=== PATIENT | male | born 1970 | race Caucasian/White ===

== ENCOUNTER 2021-05-14 06:40 | Emergency (ER) | payer MEDICARE, SELFPAY ==
[2021-05-14] VITALS (8 sets, daily range): BP systolic 90–113; BP diastolic 62–73; PULSE 88–107; RESP 13–25; TEMP 37.2; O2SAT 95–100
--- NOTE | ~2021-05-14 | XR_ITS ---
EXAMINATION: XR chest 2V DATE: 05/14/2021 07:22 INDICATION: Chest pain TECHNIQUE: AP and lateral views of the chest are obtained. COMPARISON: 05/23/2015 FINDINGS: The lungs are free of acute opacities. There is no pleural effusion or pneumothorax. Cardio megaly is noted. There is mild thoracic spondylosis. There is been interval insertion of a triple no d cardiac pacemaker of the left chest wall which ends with leads in expected locations. IMPRESSION: 1. Cardiomegaly. Reviewed, dictated and finalized at location A. IMPRESSION: 1. Cardiomegaly.
--- NOTE | 2021-05-14 07:02 | PC.NURSE ---
Pt here c ems from home, where he reports his defibrilator shocked him. reports this has happened x 2 prior. Prysm defibrilator placed 6 years ago for chf which pt attributes to childhood cancer. placed on cardiac/vascular sonographer. a/o x 4. resps even/nonlabored.
--- NOTE | 2021-05-14 07:03 | PC.NURSE ---
this rn called [facility] and stated they would fax report over within in the next 20 min.
--- NOTE | 2021-05-14 07:04 | ED.ARRPALP ---
HPI - Arrhythmia/Palpitations General Chief Complaint: Arrhythmia/Palpitations Stated Complaint: defib went off Time Seen by Provider: 05/14/21 07:04 Source: patient Mode of arrival: ambulatory Limitations: no limitations History of Present Illness HPI narrative: Patient is a 50-year-old male complaining of his defibrillator going off. Patient states that prior to his defibrillator going off he was feeling nauseated and felt like he was going to pass out and that is when the defibrillator went off. Patient denies any syncopal episodes. Patient denies any headache, dizziness, speech or visual disturbance, focal weakness or numbness, chest pain, shortness of breath, abdominal pain, vomiting, diarrhea, fever or chills. Related Data Home Medications Medication Instructions Recorded Confirmed atorvastatin 80 mg tablet 80 mg PO DAILY 07/14/20 04/15/21 clopidogrel 75 mg tablet 75 mg PO DAILY 07/14/20 04/15/21 evolocumab 140 mg/mL subcutaneous 140 mg SUB-Q ONCE 07/14/20 04/15/21 pen injector metoprolol succinate 50 mg 50 mg PO DAILY 07/14/20 04/15/21 tablet,extended release 24 hr omeprazole 20 mg tablet,delayed 20 mg PO DAILY 07/14/20 04/15/21 release sacubitril 24 mg-valsartan 26 mg 1 tablet PO BID 07/14/20 04/15/21 tablet spironolactone 25 mg tablet 25 mg PO DAILY 07/14/20 04/15/21 furosemide 80 mg tablet 120 mg PO QAM tablet 04/11/21 04/15/21 potassium chloride 20 mEq 10 meq PO DAILY tablet 04/11/21 04/15/21 tablet,extended release Allergies Allergy/AdvReac Type Severity Reaction Status Date / Time mexiletine AdvReac Intermediate Other Verified 05/14/21 06:54 Review of Systems Review of Systems: All systems reviewed & are unremarkable except as noted in HPI and below Constitutional: Constitutional: Denies body ache(s), Denies chills, Denies excessive sweating, Denies fatigue, Denies fever(s), Denies headache(s), Denies lethargy, Denies malaise, Denies weakness and Denies weight loss Eyes: Eyes: Denies blurry vision, Denies change in vision and Denies loss of vision ENT: Denies dizziness, Denies ear discharge, Denies headache(s), Denies lip swelling, Denies epistaxis, Denies nasal congestion, Denies neck pain, Denies throat swelling and Denies tongue swelling Cardiovascular: Cardiovascular: Denies chest pain, Denies chest pain at rest, Denies chest pain with activity, Denies diaphoresis, Denies rapid heart rate, Denies edema, Denies irregular heart rhythm, Denies lightheadedness, Denies palpitations, Denies dyspnea and Denies dyspnea on exertion Respiratory: Respiratory: Denies chest congestion, Denies cough, Denies hemoptysis, Denies dyspnea and Denies dyspnea on exertion Gastrointestinal: Gastrointestinal: Denies abdominal pain, Denies melena, Denies hematochezia, Denies diarrhea, Denies vomiting and Denies hematemesis Musculoskeletal: Musculoskeletal: Denies abnormal gait, Denies deformity, Denies joint swelling, Denies limited range of motion, Denies neck pain and Denies numbness Neurologic: Denies Abnormal speech present, Denies abnormal gait, Denies confusion, Denies dizziness, Denies headache(s), Denies focal weakness, Denies loss of vision, Denies numbness, Denies Other visual disturbances, Denies Sensory deficit (Neuro) and Denies weakness Psychiatric: Psychiatric: Denies confusion, Denies depression, Denies auditory hallucinations, Denies homicidal ideation and Denies suicidal ideation Endocrine: Endocrine: Denies cold intolerance, Denies excessive sweating, Denies fatigue, Denies heat intolerance and Denies palpitations Hematologic/Lymphatic: Hematologic/Lymphatic: Denies easy bleeding and Denies easy bruising Allergic/Immunologic: Allergic/Immunologic: Denies lip swelling, Denies throat swelling and Denies tongue swelling [facility] Past Medical History Medical History (Updated 05/14/21 @ 09:01 by Dm Bernardo MD) Cardiac defibrillator in place Chronic back pain Chronic, continuous use of opioids
[2021-05-14 07:05] LABS: Basophils Absolute Auto 0.1 K/mm3 (0.0-0.1); Basophils Percent Auto 0.7 % (0.2-1.2); Eosinophils Absolute Auto 0.2 K/mm3 (0-0.3); Eosinophils Percent Auto 2.8 % (0-4.4); Hematocrit 42.6 % (42.0-52.0); Hemoglobin 14.1 g/dL (14.0-18.0); Immature Granulocyte Absolute 0.01 K/mm3 (0.00-0.031); Immature Granulocyte Percent A 0.1 % (0-0.5); Lymphocytes Absolute Auto 1.89 K/mm3 (0.9-3.2); Lymphocytes Percent Auto 26.6 % (18.3-44.2); Mean Corpuscular HGB Conc 33.1 g/dl (32-36); Mean Corpuscular Hemoglobin 29.7 pg (26-34); Mean Corpuscular Volume 89.9 fl (80-100); Mean Platelet Volume 10.1 fl (7.4-10.4); Monocytes Absolute Auto 0.3 K/mm3 (0.1-0.6); Monocytes Percent Auto 4.8 % (2.6-8.5); Neutrophils Absolute Auto 4.6 K/mm3 (1.3-6.7); Platelet Count Result 148 k/mm3 (150-375); Red Blood Count 4.74 M/mm3 (4.6-6.20); Red Cell Distribution Width 13.3 % (11.5-14.5); White Blood Count 7.1 K/mm3 (4.5-10.0)
[2021-05-14 07:14] LABS: Anion Gap 11 mmol/L (8-16); Blood Urea Nitrogen 15 mg/dL (9-20); Calcium 8.8 mg/dL (8.4-10.2); Carbon Dioxide 27 mmol/L (22-30); Chloride 97 mmol/L (98-107); Estimated CRCL calculation 53 ml/min; Estimated Glomerular Filt Rate 46; Glucose 116 mg/dL (75-110); Potassium 3.3 mmol/L (3.4-5.0); Sodium 135 mmol/L (137-145)
[2021-05-14 07:15] LABS: INR 0.9; Prothrombin Time 11.9 Seconds (11.1-14.7)
[2021-05-14 07:16] LABS: Partial Thromboplastin Time 24.6 SECONDS (22.3-36.8)
[2021-05-14 07:23] LABS: NT Pro B Type Natriuretic Pept 1440 pg/mL (5-100)
[2021-05-14 07:26] LABS: Troponin I 0.016 ng/mL (0.000-0.034)
--- NOTE | 2021-05-14 07:38 | PC.NURSE ---
called lab talked to Clau patel on a D dimer at [id number]
[2021-05-14 08:19] LABS: D Dimer 0.27 ug/mL (<0.48)
--- NOTE | 2021-05-14 08:42 | ECG_ITS ---
Measurements Intervals [place] Rate: 105 P: 50 IA: 139 QRS: -78 QRSD: 174 T: 80 QT: 405 QTc: 535 Interpretive Statements ATRIAL SENSE- ELECTRONIC VENTRICULAR PACEMAKER UNDERLYING SINUS TACHYCARDIA NO FURTHER INTERPRETATION IS POSSIBLE ABNORMAL ECG Electronically Signed On 05-14-2021 11:13:11 CDT by Usama Simental D.O.
[2021-05-14] MEDS: POTASSIUM CHLORIDE 20 MEQ PACKET (FOR LIQUID) PO (08:44)
--- NOTE | 2021-05-14 10:02 | PC.NURSE ---
called lab talked to Melissa added on MG at 1002
[2021-05-14 10:06] LABS: Troponin I 0.033 ng/mL (0.000-0.034)
--- NOTE | 2021-05-14 10:24 | ED.ARRPALP ---
HPI - Arrhythmia/Palpitations General Chief Complaint: Arrhythmia/Palpitations Stated Complaint: defib went off Time Seen by Provider: 05/14/21 07:04 Source: patient Mode of arrival: ambulatory Limitations: no limitations History of Present Illness HPI narrative: Patient is a 50-year-old male complaining of his defibrillator going off. Patient states that prior to his defibrillator going off he was feeling nauseated and felt like he was going to pass out and that is when the defibrillator went off. Patient denies any syncopal episodes. Patient denies any headache, dizziness, speech or visual disturbance, focal weakness or numbness, chest pain, shortness of breath, abdominal pain, vomiting, diarrhea, fever or chills. Related Data Home Medications Medication Instructions Recorded Confirmed atorvastatin 80 mg tablet 80 mg PO DAILY 07/14/20 04/15/21 clopidogrel 75 mg tablet 75 mg PO DAILY 07/14/20 04/15/21 evolocumab 140 mg/mL subcutaneous 140 mg SUB-Q ONCE 07/14/20 04/15/21 pen injector metoprolol succinate 50 mg 50 mg PO DAILY 07/14/20 04/15/21 tablet,extended release 24 hr omeprazole 20 mg tablet,delayed 20 mg PO DAILY 07/14/20 04/15/21 release sacubitril 24 mg-valsartan 26 mg 1 tablet PO BID 07/14/20 04/15/21 tablet spironolactone 25 mg tablet 25 mg PO DAILY 07/14/20 04/15/21 furosemide 80 mg tablet 120 mg PO QAM tablet 04/11/21 04/15/21 potassium chloride 20 mEq 10 meq PO DAILY tablet 04/11/21 04/15/21 tablet,extended release Allergies Allergy/AdvReac Type Severity Reaction Status Date / Time mexiletine AdvReac Intermediate Other Verified 05/14/21 06:54 Review of Systems Review of Systems: All systems reviewed & are unremarkable except as noted in HPI and below Constitutional: Constitutional: Denies body ache(s), Denies chills, Denies excessive sweating, Denies fatigue, Denies fever(s), Denies headache(s), Denies lethargy, Denies malaise, Denies weakness and Denies weight loss Eyes: Eyes: Denies blurry vision, Denies change in vision and Denies loss of vision ENT: Denies dizziness, Denies ear discharge, Denies headache(s), Denies lip swelling, Denies epistaxis, Denies nasal congestion, Denies neck pain, Denies throat swelling and Denies tongue swelling Cardiovascular: Cardiovascular: Denies chest pain, Denies chest pain at rest, Denies chest pain with activity, Denies diaphoresis, Denies rapid heart rate, Denies edema, Denies irregular heart rhythm, Denies lightheadedness, Denies palpitations, Denies dyspnea and Denies dyspnea on exertion Respiratory: Respiratory: Denies chest congestion, Denies cough, Denies hemoptysis, Denies dyspnea and Denies dyspnea on exertion Gastrointestinal: Gastrointestinal: Denies abdominal pain, Denies melena, Denies hematochezia, Denies diarrhea, Denies nausea, Denies vomiting and Denies hematemesis Musculoskeletal: Musculoskeletal: Denies abnormal gait, Denies deformity, Denies joint swelling, Denies limited range of motion, Denies neck pain and Denies numbness Neurologic: Denies Abnormal speech present, Denies abnormal gait, Denies confusion, Denies dizziness, Denies headache(s), Denies focal weakness, Denies loss of vision, Denies numbness, Denies Other visual disturbances, Denies Sensory deficit (Neuro) and Denies weakness Psychiatric: Psychiatric: Denies confusion, Denies depression, Denies auditory hallucinations, Denies homicidal ideation and Denies suicidal ideation Endocrine: Endocrine: Denies cold intolerance, Denies excessive sweating, Denies fatigue, Denies heat intolerance and Denies palpitations Hematologic/Lymphatic: Hematologic/Lymphatic: Denies easy bleeding and Denies easy bruising Allergic/Immunologic: Allergic/Immunologic: Denies lip swelling, Denies throat swelling and Denies tongue swelling [facility] Past Medical History Medical History (Updated 05/14/21 @ 10:33 by Dm Bernardo MD) Cardiac defibrillator in place Chronic back pain Chronic, continuous u
--- NOTE | 2021-05-14 11:05 | PC.NURSE ---
Bárbara EDWARDS called to give bed # [id number]
--- NOTE | 2021-05-14 11:15 | PC.NURSE ---
Report given to Bárbara EDWARDS at this time, Mike YOUSSEF . Patient going to room 4068 by EMS
--- NOTE | 2021-05-14 11:32 | PC.NURSE ---
made contact with [employer] to transfer pt to [facility]. company accepted with no eta. made contact with [facility] to transfer pt. company accepted eta in route. company is aware pt is going to [facility] rm [phone]
--- NOTE | 2021-05-14 12:11 | PC.NURSE ---
dwayne has arrived and crew is aware that pt is going [facility]
== END 2021-05-14 12:15 | disposition short-term general hospital (02) ==
PROVIDERS: Emergency Medicine; Emergency Provider Emergency Medicine; PCP Family Medicine
DX: I47.2 Ventricular tachycardia (principal); T82.198A Other mechanical complication of other cardiac electronic device, initial encounter; I50.9 Heart failure, unspecified; Z87.891 Personal history of nicotine dependence; Z95.0 Presence of cardiac pacemaker; Z85.71 Personal history of Hodgkin lymphoma
CPT/HCPCS: 36415; 71046; 80048; 83735; 83880; 84484; 85025; 85380; 85610; 85730; 93005; 99285; A9270

== ENCOUNTER 2022-05-10 13:08 | Outpatient (CLI) | payer MEDICARE, SELFPAY ==
--- NOTE | ~2022-05-10 | US_ITS ---
EXAMINATION:US venous doppler LE RT INDICATION:Localized edema TECHNIQUE: Multiple grayscale, color flow and Doppler images of the right lower extremity deep venous systems were obtained and reviewed. COMPARISON:No prior studies for comparison. FINDINGS: The common femoral, superficial femoral and popliteal veins demonstrate normal respiratory variation, augmentation and compressibility. Color flow is also seen within the posterior tibial, pe roneal, greater saphenous and profunda veins. IMPRESSION: 1: No lower extremity deep venous thrombosis. Reviewed, dictated and finalized at location A.
== END 2022-05-10 13:09 | disposition home or self-care (01) ==
PROVIDERS: PCP Family Medicine; Visit Provider Physician Assistant Medical
DX: R60.0 Localized edema (principal)
CPT/HCPCS: 93971

== ENCOUNTER 2025-04-11 11:34 | Outpatient (CLI) | payer MEDICARE, SELFPAY ==
--- NOTE | ~2025-04-11 | XR_ITS ---
EXAMINATION: XR abdomen obstructive series DATE: 04/11/2025 11:53 INDICATION: Abdominal pain TECHNIQUE: Supine and upright views of the abdomen. FINDINGS: Supine and upright views of the abdomen The visualized lung parenchyma is normal.. There is a nonobstructive bowel gas pattern. Gas and stool are seen throughout the colon to the level of the rectum. There is no free air. IMPRESSION: 1. No acute abdominal abnormality. Reviewed, dictated and finalized at location A.
== END 2025-04-11 11:35 | disposition home or self-care (01) ==
PROVIDERS: PCP Family Medicine; Visit Provider Family Medicine
DX: R10.9 Unspecified abdominal pain (principal)
CPT/HCPCS: 74019

== ENCOUNTER 2025-04-19 08:52 | Outpatient (CLI) | payer MEDICARE, SELFPAY ==
--- NOTE | ~2025-04-19 | CT_ITS ---
Non-contrast CT scan of the Abdomen and Pelvis Clinical indication: Abdominal pain Technique: 2.5 mm axial scans were obtained through the abdomen and pelvis without intravenous or or al contrast. Dose reduction technique was used on this scan by utilizing automated exposure control a nd iterative reconstruction technique. The dose-length product (DLP) was 576.63 mGy-cm. Findings: Images through the lung bases reveal no abnormalities. There is no evidence of renal or ureteral calculi. The kidneys and the ureters are nondilated. 2.4 cm suspected renal cyst present on the right kidney. The liver, spleen, pancreas, gallbladder, and adrenals appear normal. There are atherosclerotic calci fications of the aorta. . There is no evidence of bowel obstruction. Images through the pelvis were performed. There is no evidence of ascites or lymphadenopathy. Urinary bladder unremarkable. No pelvic mass seen. No ascites. Impression: 2.4 cm suspected right renal cyst. Confirmation with ultrasound is advised. No other significant findings. Reviewed, dictated and finalized at [facility]. Impression: 2.4 cm suspected right renal cyst. Confirmation with ultrasound is advised. No other significant findings.
== END 2025-04-19 08:53 | disposition home or self-care (01) ==
PROVIDERS: Visit Provider Family Medicine
DX: R10.9 Unspecified abdominal pain (principal); N18.4 Chronic kidney disease, stage 4 (severe); Z94.1 Heart transplant status
CPT/HCPCS: 74176

== ENCOUNTER 2025-04-27 11:29 | Outpatient (CLI) | payer MEDICARE, SELFPAY ==
--- NOTE | ~2025-04-27 | US_ITS ---
Renal-Bladder ultrasound Clinical History: Renal cyst Technique: Real-time sonographic imaging of the kidneys and urinary bladder was performed. Findings: The right kidney measures 11.3 cm in length and the left kidney measures 10.4 cm. There is no hydronephrosis or renal calculus identified. Renal cortical echogenicity is mildly increased. 2.4 cm right renal cyst present. The urinary bladder is partially distended at the time of this exam. No intraluminal echoes are ident ified. No abnormal wall thickening is seen. Impression: Echogenic kidneys suggest chronic medical renal disease. Small right renal cyst. Reviewed, dictated and finalized at location . Impression: Echogenic kidneys suggest chronic medical renal disease. Small right renal cyst.
== END 2025-04-27 11:30 | disposition home or self-care (01) ==
LOC: MICIMG 11:30
PROVIDERS: Visit Provider Family Medicine
DX: R93.421 Abnormal radiologic findings on diagnostic imaging of right kidney (principal); N28.1 Cyst of kidney, acquired; N18.4 Chronic kidney disease, stage 4 (severe)
CPT/HCPCS: 76775